=== PATIENT | female | born 1965 | race Caucasian/White ===

== ENCOUNTER 2022-01-30 05:52 | Day surgery (SDC) | payer OTHER, MEDICAID ==
[2022-01-24 13:26] VITALS: BMI 30.8
[2022-01-30] MEDS ORDERED: EPINEPHrine 1 MG/ML AMP ONE ×2 (06:49→06:50)
[2022-01-30] MEDS ORDERED: Famotidine/PF 20 mg/2ml Vial ONE (07:14)
[2022-01-30] MEDS ORDERED: PROPOFOL 40 ML ONE ×2 (07:14→08:07)
[2022-01-30] MEDS ORDERED: SUGAMMADEX SODIUM 200 MG/2 ML VIAL ONE (07:14)
[2022-01-30] MEDS ORDERED: Fentanyl 100 MCG/2 ML VIAL ONE ×2 (07:20→07:50)
[2022-01-30] MEDS ORDERED: CEFAZOLIN 2 GM VIAL ONE (07:26)
[2022-01-30] MEDS ORDERED: Midazolam HCl 2 mg/2 ml Vial ONE (07:27)
[2022-01-30] MEDS ORDERED: Lidocaine 4% Topical Sol 50 ML BOT ONE ×2 (07:32→07:33)
[2022-01-30] MEDS ORDERED: PROPOFOL 20 ML ONE (08:00)
== END 2022-01-30 09:30 | disposition home or self-care (01) ==
LOC: CSHSDC 05:52
PROVIDERS: ATTEND Otolaryngology Otolaryngic Allergy
PROC: 0CBM8ZX Excision of Pharynx, Via Natural or Artificial Opening Endoscopic, Diagnostic (ICD-10-PCS; principal; 2022-01-30)
PROC: 0CBT8ZX Excision of Right Vocal Cord, Via Natural or Artificial Opening Endoscopic, Diagnostic (ICD-10-PCS; 2022-01-30)
DX: J38.3 Other diseases of vocal cords (principal); J32.9 Chronic sinusitis, unspecified; K14.0 Glossitis; R49.0 Dysphonia; R49.8 Other voice and resonance disorders; I10 Essential (primary) hypertension; J34.89 Other specified disorders of nose and nasal sinuses; F32.A Depression, unspecified; Z85.21 Personal history of malignant neoplasm of larynx; F17.210 Nicotine dependence, cigarettes, uncomplicated; Z20.822 Contact with and (suspected) exposure to COVID-19; Z79.899 Other long term (current) drug therapy; Z88.0 Allergy status to penicillin; Z88.8 Allergy status to other drugs, medicaments and biological substances
CPT/HCPCS: 87811; 88305; 88312; 93005; 93010; J0171; J0690; J2250; J2704; J3010; S0028